=== PATIENT | female | born 1975 | race Caucasian/White ===

== ENCOUNTER 2021-03-01 02:08 | Emergency (ER) | payer OTHER ==
[2021-03-01 02:15] VITALS: TEMP 97.5
[2021-03-01] MEDS ORDERED: KETOROLAC 15 MG/ML 1 ML VIAL IM STA (02:43)
--- NOTE | 2021-03-01 02:49 | ED ---
Headache HPI - General Chief Complaint: Headache Stated Complaint: Headache Time Seen by Provider: 03/01/21 02:20 Mode of arrival: ambulatory Limitations: no limitations - History of Present Illness Initial Comments: 45-year-old female with history of migraines presents emergency Department with chief complaint of a headache. Patient reports her symptoms begin yesterday after she had an orgasm during sex. Patient reports she developed sudden headache in the frontal region of her head which initially was sharp but now it feels more like a pressure. She denies any chest pain or shortness of breath. States this does not feel like her typical migraine headache which are usually unilateral and associated with vomiting. She did not take any medication to the symptoms. She denies any neck stiffness, visual changes, extremity weakness or paresthesias. Patient also complaining of some dysuria over the last several days but denies increased urgency or frequency. Not concerned for STDs. No vaginal symptoms. She has hysterectomy. - Related Data Allergies Allergy/AdvReac Type Severity Reaction Status Date / Time No Known Allergies Allergy Verified 03/01/21 02:15 Review of Systems ROS Statement: Those systems with pertinent positive or pertinent negative responses have been documented in the HPI. ROS Other: All systems not noted in ROS Statement are negative. Past Medical History Past Medical History: Fibromyalgia Additional Past Medical History / Comment(s): back pain History of Any Multi-Drug Resistant Organisms: None Reported Past Surgical History: Hysterectomy Past Psychological History: No Psychological Hx Reported Smoking Status: Current every day smoker Past Alcohol Use History: None Reported Past Drug Use History: None Reported General Exam Limitations: no limitations General appearance: alert, in no apparent distress Head exam: Present: atraumatic, normocephalic, normal inspection Eye exam: Present: normal appearance, PERRL, EOMI Pupils: Present: normal accommodation ENT exam: Present: normal exam, normal oropharynx, mucous membranes moist, TM's normal bilaterally, normal external ear exam Neck exam: Present: normal inspection, full ROM. Absent: tenderness, lymphadenopathy Respiratory exam: Present: normal lung sounds bilaterally. Absent: respiratory distress, wheezes, rales, rhonchi, stridor, accessory muscle use Cardiovascular Exam: Present: regular rate, normal rhythm, normal heart sounds Extremities exam: Present: normal inspection, full ROM, normal capillary refill, other (Palpable ulnar and radial pulses bladder. Palpable DP and PT bilaterally.). Absent: tenderness, pedal edema, joint swelling Back exam: Present: normal inspection, full ROM. Absent: tenderness, CVA tenderness (R), CVA tenderness (L) Neurological exam: Present: alert, oriented X3, CN II-XII intact, normal gait Psychiatric exam: Present: normal affect, normal mood Skin exam: Present: warm, dry, intact, normal color Course Vital Signs 03/01/21 03/01/21 02:11 03:53 Temperature 97.5 F L Pulse Rate 76 72 Respiratory 18 17 Rate Blood Pressure 118/79 116/70 O2 Sat by Pulse 100 100 Oximetry Medical Decision Making - Medical Decision Making 45-year-old female with history of migraines presents emergency Department with chief complaint of a headache. On physical examination, patient does not have any focal neural deficits. Vital signs are within normal limits. She did have a separate complaint for dysuria. UA showed hematuria but no signs of a urinary tract infection. CT of the brain is unremarkable. Patient was given 15 mg Toradol with improvement in his symptoms. She also had a complaint of dysuria but actually is not significantly suggestive for urinary Infection. Likely contaminated sample. White blood cells 16 with small amounts of leukocyte esterase. Return parameters discussed with patient is an attending agreeable. Case discussed with - Lab Data Lab Results 03/01/21 Range/Units 02:51 Urine Color Yellow Urine Appearance Clear (Clear) Urine pH 5.5 (5.0-8.0) Ur Specific [place] 1.017 (1.001-1.035) Urine Protein Negative (Negative) Urine Glucose (UA) Negative (Negative) Urine Ketones Negative (Negative) Urine Blood Moderate H (Negative) Urine Nitrite Negative (Negative) Urine Bilirubin Negative (Negative) Urine Urobilinogen <2.0 (<2.0) mg/dL Ur Leukocyte Esterase Small H (Negative) Urine RBC 38 H (0-5) /hpf Urine WBC 16 H (0-5) /hpf Ur Squamous Epith Cells 8 H (0-4) /hpf Disposition Clinical Impression: Headache Disposition: HOME SELF-CARE Condition: Stable Instructions (If sedation given, give patient instructions): Acute Headache (ED) Additional Instructions: Please return to the Emergency Department if symptoms worsen or any other concerns. Is patient prescribed a controlled substance at d/c from ED?: No Referrals: Nonstaff,Physician [Primary Care Provider] - 1-2 days Time of Disposition: 03:41
[2021-03-01 03:19] LABS: Appearance,Urine Clear (Clear); Bilirubin,Urine Negative (Negative); Blood,Urine Moderate (Negative); Color,Urine Yellow; Glucose,Urine (UA) Negative (Negative); Ketones,Urine Negative (Negative); Leukocyte Esterase,Urine Small (Negative); Nitrite,Urine Negative (Negative); PH, Urine 5.5 (5.0-8.0); Protein,Urine Negative (Negative); RBC,Urine 38 /hpf (0-5); Specific Gravity,Urine 1.017 (1.001-1.035); Squamous Epithelial Cell,Urine 8 /hpf (0-4); Urobilinogen,Urine <2.0 mg/dL (<2.0); WBC,Urine 16 /hpf (0-5)
--- NOTE | 2021-03-01 03:34 | CT ---
EXAM: CT Head Without Intravenous Contrast CLINICAL HISTORY: ITS.REASON CT Reason: acute headache, normal neuro exam TECHNIQUE: Axial computed tomography images of the head/brain without intravenous contrast. CTDI is 49.27 mGy and DLP is 1098.4 mGy-cm. This CT exam was performed using one or more of the following dose reduction techniques: automated exposure control, adjustment of the mA and/or kV according to patient size, and/or use of iterative reconstruction technique. COMPARISON: No relevant prior studies available. FINDINGS: Brain: Unremarkable. No hemorrhage. No significant white matter disease. No edema. Ventricles: Unremarkable. No ventriculomegaly. Bones/joints: Unremarkable. No acute fracture. Soft tissues: Unremarkable. Sinuses: Unremarkable as visualized. No acute sinusitis. Mastoid air cells: Unremarkable as visualized. No mastoid effusion. IMPRESSION: Normal head/brain CT.
[2021-03-01 03:54] VITALS: BP 116/70; PULSE 72; RESP 17
== END 2021-03-01 04:15 | disposition home or self-care (01) ==
LOC: EC 02:08
DX: R51.9 Headache, unspecified (principal); F17.200 Nicotine dependence, unspecified, uncomplicated; M79.7 Fibromyalgia; Z90.710 Acquired absence of both cervix and uterus
CPT/HCPCS: 81001; 87086; 87077; 87186; 70450; 99284; 96372; J1885